=== PATIENT | female | born 1965 | race Caucasian/White ===

== ENCOUNTER 2018-03-06 15:21 | Emergency (ER) | payer OTHER ==
--- NOTE | 2018-03-06 15:57 | EDPHY ---
H & P Stated Complaint: c/o pain in L wrist/lateral R knee after falling while skiing Time Seen by Provider: 03/06/18 15:56 HPI/ROS: CHIEF COMPLAINT: Fall skiing, right knee pain, left wrist pain HISTORY OF PRESENT ILLNESS: The patient presents the ED after she sustained a mechanical fall skiing. She complains of right knee pain left wrist pain. She did not strike her head or lose consciousness. She has no complaints of headache, neck pain, chest pain, back pain, difficulty breathing, numbness or weakness. Patient denies significant past medical history. She denies any additional acute complaints. The pain in her left wrist is moderate in nature and worsened with movement. The pain in her right knee is mild in nature and predominantly along the lateral fibular head. REVIEW OF SYSTEMS: A comprehensive 10 point review of systems is otherwise negative aside from elements mentioned in the history of present illness. Source: Patient Exam Limitations: No limitations - Personal History Current Tetanus Diphtheria and Acellular Pertussis (TDAP): Yes - Medical/Surgical History Hx Asthma: No Hx Chronic Respiratory Disease: No Hx Diabetes: No Hx Cardiac Disease: No Hx Renal Disease: No Hx Cirrhosis: No Hx Alcoholism: No Hx HIV/AIDS: No Hx Splenectomy or Spleen Trauma: No Other PMH: hypothyroid - Social History Smoking Status: Former smoker - Physical Exam Exam: General Appearance: Alert, no distress Head: Atraumatic Eyes: Pupils equal, round, reactive ENT, Mouth: No hemotympanum, no oral trauma Neck: Nontender, trachea midline Respiratory: No chest wall tender, no subcutaneous air, lungs clear bilaterally Cardiovascular: Regular rate and rhythm Abdomen: Abdomen is soft and nontender, pelvis stable Skin: No lacerations, No abrasion Back: No midline T/L/S pain Extremities: Tenderness to palpation left distal radius, tenderness to palpation right fibular head Neurological: A&Ox3, normal motor function, normal sensory exam Constitutional: Initial Vital Signs Temperature (C) 37 C 03/06/18 15:47 Heart Rate 70 03/06/18 15:47 Respiratory Rate 16 03/06/18 15:47 Blood Pressure 124/76 H 03/06/18 15:47 O2 Sat (%) 97 03/06/18 15:47 O2 Delivery Mode Room Air Allergies/Adverse Reactions: codeine Allergy (Verified 03/06/18 15:50) Home Medications: Medication Instructions Recorded Hydrocodone/APAP 5/325 [Aptos 1 - 2 each PO Q6 PRN #20 tab 03/06/18 5/325] Levothyroxine 03/06/18 Medical Decision Making - Diagnostics Imaging Results: Imaging Impressions Wrist X-Ray 03/06/18 16:00 Impression: Comminuted angulated distal left radius fracture, as above. Knee X-Ray 03/06/18 16:07 Impression: No evidence for acute osseous abnormality right knee. Wrist X-Ray 03/06/18 16:48 Impression: Distal radius fracture is in near anatomic alignment with mild residual angulation following casting. Procedures: GENERAL FRACTURE REDUCTION Procedure: Reduction of displaced, angulated distal radius fracture Time-out completed immediately before the procedure. IV established. O2 administered. Given hematoma block with 10 cc of 1% lidocaine for pain . The left distal radius fracture was reduced using traction and dorsal pressure. Reassessed post-procedure. Neurovascular status intact-Normal Motor and sensory exam. Exam indicated reduction. Confirmed reduction on X-ray. Splint applied by myself. The procedure was performed by myself, Valeriy Smith ED Course/Re-evaluation: Patient presents to the ED for evaluation of a right knee and left wrist injury she sustained skiing. The patient was noted to have a comminuted angulated displaced Colles fracture. The patient underwent a hematoma block and successful reduction by myself in the emergency department. She is placed in a ortho glass sugar-tong splint. The patient plans to travel home to [place] in 2 days and will follow up with the orthopedic surgeon when she returns home. Differential Diagnosis: Differential diagnosis considered includes wrist fracture, wrist dislocation, knee fracture, knee dislocation, myofascial strain Departure - Departure Disposition: Home, Routine, Self-Care Clinical Impression: Fracture of left distal radius Qualifiers: Encounter type: initial encounter Open fracture type: open type I or II Strain of right knee Qualifiers: Encounter type: initial encounter Qualified Code(s): S86.911A - Strain of unspecified muscle(s) and tendon(s) at lower leg level, right leg, initial encounter Condition: Good Instructions: Wrist Fracture in Adults (ED) Additional Instructions: 1. Take Ibuprofen or Motrin 600 mg by mouth three times a day. 2. Aptos as needed for severe pain. 3. Please schedule a follow-up appointment with orthopedic surgeon within the next week for evaluation of your fracture. 4. You have been given the contact number of our local orthopedic surgeon if you would like to be seen in the next 1-2 days. 5. You have been given a CD with a copy of your x-rays performed in the emergency department to take with you to your orthopedic surgeon if you follow up in [place]. Referrals: Micha Fairchild MD [Medical Doctor] - As per Instructions Prescriptions: Hydrocodone/APAP 5/325 [Aptos 5/325] 1 - 2 each PO Q6 PRN #20 tab PRN Reason: for pain
[2018-03-06 17:19] VITALS: BP 118/78
== END 2018-03-06 17:28 | disposition home or self-care (01) ==
PROC: 2W3DX1Z Immobilization of Left Lower Arm using Splint (ICD-10-PCS; principal; 2018-03-06)
DX: S52.592B Other fractures of lower end of left radius, initial encounter for open fracture type I or II (principal); S86.911A Strain of unspecified muscle(s) and tendon(s) at lower leg level, right leg, initial encounter; E03.9 Hypothyroidism, unspecified; V00.321A Fall from snow-skis, initial encounter; Y93.23 Activity, snow (alpine) (downhill) skiing, snowboarding, sledding, tobogganing and snow tubing; Y92.89 Other specified places as the place of occurrence of the external cause; Y99.9 Unspecified external cause status
CPT/HCPCS: A4565